=== PATIENT | male | born 1965 | race Caucasian/White ===

== ENCOUNTER 2017-03-11 22:54 | Inpatient (IN) | payer BC ==
[~2017-03-11] VITALS: Ht 185.4 cm; Wt 132.3 kg
[~2017-03-11 22:54] MED LIST: ADVIL,NUPRIN,M200 MG PO; COLBENEMID1 TABLET PO; DILAUDID2 MG PO; FENOFIBRATE160 M1 PO; FLEXERIL10 MG PO; NAPROSYN500 MG PO; PROBENECID-COL1 EACH PO; ROXICODONE5 MG PO; XARELTO15 MG PO; XARELTO20 MG PO
[2017-03-12 00:11] LABS: HEMATOCRIT 43.3 % (38.0-50.0); MCH 30.2 PG (29.0-34.0); MCHC 34.2 G/DL (30.0-36.0); MCV 88.4 FL (86-99); MEAN PLAT.VOLUME 9.5 uM^3 (9.0-12.4); PLATELET COUNT 300 K/uL (156-360); RBC DIS.WIDTH-CV 12.9 % (11.8-14.6); RBC DIS.WIDTH-SD 41.8 % (39-53)
[2017-03-12 00:18] LABS: INTER. NORMALIZED RATIO 1.2; PROTHROMBIN TIME 13.7 SEC (10.2-12.9)
[2017-03-12 00:20] LABS: PTT 32.9 SEC (25-37)
[2017-03-12 00:23] LABS: CHLORIDE 104 mEq/L (99-109); POTASSIUM 3.8 mEq/L (3.7-5.4); SODIUM 139 mEq/L (136-147)
[2017-03-12 00:25] LABS: GLUCOSE 110 mg/dL (70-99)
[2017-03-12 00:27] LABS: ANION GAP 12 MEQ/L (2-14); TOTAL BILIRUBIN 0.8 mg/dL (0.0-1.0)
[2017-03-12 00:29] LABS: ALKALINE PHOSPHATASE 49 IU/L (3-129); GFR ESTIMATE (CALCULATED) > 59 mL/min/
[2017-03-12 00:30] LABS: UREA NITROGEN (BUN) 15 mg/dL (9-23)
[2017-03-12 04:34] VITALS: BP 119/57
[2017-03-12 07:55] VITALS: BP 115/58
[2017-03-12] MEDS ORDERED: FLONASE16 G1 BOTH NARES (08:30)
[2017-03-12 09:28] LABS: HEMATOCRIT 39.8 % (38.0-50.0); MCH 31.2 PG (29.0-34.0); MCHC 34.9 G/DL (30.0-36.0); MCV 89.4 FL (86-99); MEAN PLAT.VOLUME 9.3 uM^3 (9.0-12.4); PLATELET COUNT 281 K/uL (156-360); RBC DIS.WIDTH-CV 13.2 % (11.8-14.6); RBC DIS.WIDTH-SD 43.2 % (39-53); RED BLOOD COUNT 4.45 M/uL (4.00-5.50); WHITE BLOOD COUNT 6.8 K/uL (4.1-10.2)
[2017-03-12 11:48] VITALS: BP 119/71
[2017-03-12 16:00] VITALS: BP 118/63
[2017-03-12 19:31] VITALS: BP 121/72
[2017-03-12 23:40] VITALS: BP 122/63
[2017-03-13 04:13] VITALS: BP 110/69
[2017-03-13 08:28] VITALS: BP 125/63
[2017-03-13 12:20] VITALS: BP 135/70
[2017-03-13 16:51] VITALS: BP 119/73
[2017-03-13 19:33] LABS: INTER. NORMALIZED RATIO 1.1; PROTHROMBIN TIME 11.9 SEC (10.2-12.9)
[2017-03-13 19:36] LABS: PTT 45.9 SEC (25-37)
[2017-03-13 21:03] VITALS: BP 135/74
[2017-03-14 00:03] VITALS: BP 108/56
[2017-03-14 03:28] VITALS: BP 109/56
[2017-03-14 08:20] VITALS: BP 121/78
[2017-03-14 09:50] LABS: HEMATOCRIT 43.8 % (38.0-50.0); MCH 30.3 PG (29.0-34.0); MCHC 34.2 G/DL (30.0-36.0); MCV 88.5 FL (86-99); MEAN PLAT.VOLUME 9.1 uM^3 (9.0-12.4); PLATELET COUNT 348 K/uL (156-360); RBC DIS.WIDTH-CV 12.9 % (11.8-14.6); RBC DIS.WIDTH-SD 42.1 % (39-53); RED BLOOD COUNT 4.95 M/uL (4.00-5.50); WHITE BLOOD COUNT 6.4 K/uL (4.1-10.2)
[2017-03-14] MEDS ORDERED: XARELTO15 MG PO ×3 (12:32→13:09)
== END 2017-03-14 15:30 | disposition home or self-care (01) | DRG 176 ==
LOC: EME 22:54 → EDOF 03-12 02:42 → 3EAST 03-12 02:42 → ENRESERV 03-12 02:43 → 3EAST 03-12 04:15
PROVIDERS: Family Medicine; Nurse Practitioner Family
DX: I26.99 Other pulmonary embolism without acute cor pulmonale (principal); D68.51 Activated protein C resistance; G47.30 Sleep apnea, unspecified; J98.11 Atelectasis; E66.9 Obesity, unspecified; Z68.38 Body mass index [BMI] 38.0-38.9, adult
CPT/HCPCS: 71020; 71275; 80053; 85027; 85379; 85610; 85730; 93005; 99281; 99285

== ENCOUNTER 2017-09-14 19:57 | Emergency (ER) | payer BC ==
[~2017-09-14] VITALS: Ht 185.4 cm; Wt 140.5 kg
[~2017-09-14 19:57] MED LIST changes: +FLONASE16 G1 BOTH NARES
[2017-09-15] MEDS ORDERED: ULTRAM50 MG PO (02:01)
[2017-09-15 02:36] VITALS: BP 131/77
== END 2017-09-15 02:37 | disposition home or self-care (01) ==
LOC: EME 19:57
DX: S76.012A Strain of muscle, fascia and tendon of left hip, initial encounter (principal); R60.0 Localized edema; W18.40XA Slipping, tripping and stumbling without falling, unspecified, initial encounter; Y99.0 Civilian activity done for income or pay; Z86.718 Personal history of other venous thrombosis and embolism; Z86.711 Personal history of pulmonary embolism; Z79.01 Long term (current) use of anticoagulants
CPT/HCPCS: 73502; 93971; 99281; 99284